=== PATIENT | female | born 1950 | race Hispanic/Latino ===

== ENCOUNTER → 2023-02-19 | Outpatient (CLI) | payer OTHER, MEDICARE | END | disposition home or self-care (01) | LOC: RAH 14:42 | DX: Z12.31 Encounter for screening mammogram for malignant neoplasm of breast (principal) | CPT/HCPCS: 77067 ==

== ENCOUNTER 2024-10-29 06:23 | Day surgery (SDC) | payer OTHER, MEDICARE ==
[~2024-10-29] VITALS: Ht 154.9 cm; Wt 48.1 kg
[2024-10-29] VITALS (11 sets, daily range): BP systolic 109–156; BP diastolic 46–74; PULSE 72–89; RESP 12–18; TEMP 97–97.3
[~2024-10-29 06:23] MED LIST: ALEN70TA80 PO; AMLO-257 PO; ATOR10 PO; CHOL2000 PO; LEVO50CA4 PO; MONT-39 PO
[2024-10-29] MEDS: 0.9%NACL 1000ML 1,000 ML IV ONE (07:07)
[2024-10-29] MEDS ORDERED: proPOFol 10 MG/ML 20ML VIAL IV ONE (07:40)
[2024-10-29] MEDS ORDERED: ePHEDrine SULFate 50 MG/ML AMPULE ONE (08:07)
--- NOTE | 2024-10-29 09:26 | NUR ---
Patient aox4. Denies c/o pain or discomfort. Voiced understanding to EGD/Colonoscopy precautions and follow up expectations. Ambulated to bathroom with standby assist. Voided large amount of clear urine. PIV discontinued with catheter tip intact. Full and complete Discharge instructions given to Patient and Family. All questions answered. W/C to POV with Family to Home.
== END 2024-10-29 09:25 | disposition home or self-care (01) ==
LOC: DAH 06:23 → ENDO 06:23
PROVIDERS: ATTEND Internal Medicine Gastroenterology
DX: D50.9 Iron deficiency anemia, unspecified (principal); K57.30 Diverticulosis of large intestine without perforation or abscess without bleeding; K44.9 Diaphragmatic hernia without obstruction or gangrene; R63.4 Abnormal weight loss; K29.40 Chronic atrophic gastritis without bleeding; D3A.092 Benign carcinoid tumor of the stomach; K08.89 Other specified disorders of teeth and supporting structures; I10 Essential (primary) hypertension; E03.9 Hypothyroidism, unspecified; E78.00 Pure hypercholesterolemia, unspecified; Z79.899 Other long term (current) drug therapy; Z98.890 Other specified postprocedural states; Z68.1 Body mass index [BMI] 19.9 or less, adult
CPT/HCPCS: 43239; 45378; J7030 ×2; J3490; J2704; A4620; A4215; A4223; A7002; A4222; A4221; A4663; A4606

== ENCOUNTER → 2025-08-20 | Outpatient (CLI) | payer OTHER, MEDICAID ==
[~2025-08-20] MED LIST changes: -LEVO50CA4 PO; +LEVO50CA5 PO
== END | disposition home or self-care (01) ==
LOC: RAH 13:34
PROVIDERS: ATTEND Internal Medicine
DX: Z12.31 Encounter for screening mammogram for malignant neoplasm of breast (principal)
CPT/HCPCS: 77067